=== PATIENT | female | born 1930 | race Caucasian/White ===

== ENCOUNTER 2019-05-01 11:07 | Inpatient (IN) ==
[2019-05-01] MEDS ORDERED: SODIUM CHLORIDE 0.9% 1,000 ML IV STA ×3 (11:39→12:29)
[2019-05-01 11:54] LABS: Basophils % 0.5 % (0.0-0.8); Hematocrit 52.4 VOL% (35.7-47.0); Hemoglobin 16.8 GM/DL (12.0-16.0); Immature Granulocytes % 0.4 %; Immature Granulocytes Absolute 0.03 #; Lymphocytes % 13.4 % (21.3-54.2); Mean Corpuscular HGB Conc 32.1 GM/DL (32-36); Mean Platelet Volume 9.8 FL (9.6-12.0); Monocytes % 18.9 % (1.7-12.7); Neutrophils % 66.8 % (38.7-73.9); Platelet Count 219 T/CUMM (130-400); Red Blood Count 5.89 MC/CUMM (3.8-5.5); Red Cell Distribution Width 17.1 % (9.3-17.3); White Blood Count 7.5 T/CUMM (4-12)
[2019-05-01 12:11] LABS: Apearance,Urine CLEAR (Clear); Bilirubin,Urine Moderate mg/dL (Negative); Blood, Urine Negative (Negative); Glucose,Urine (UA) Negative (Negative); Hyaline Casts,Urine 30 /LPF (0-3); Ketones,Urine 5 mg/dL (Negative); Mucus,Urine Occasional /LPF (Occasional); Nitrite,Urine Negative (Negative); Protein,Urine Negative; RBC,Urine <1 /HPF (0-4); Squamous Epithelial Cell,Urine Occasional /HPF (0-10); Urine Color Amber (Yellow); Urine Specific Gravity 1.025 (1.001-1.035); WBC,Urine <1 /HPF (0-6)
[2019-05-01 12:11] LABS: Alanine Aminotransferase 15 U/L (13-56); Albumin 2.9 G/DL (3.4-5.0); Alkaline Phosphatase 83 U/L (45-117); Aspartate Amino Transferase 15 U/L (0-37); Blood Urea Nitrogen 45 MG/DL (7-18); Calcium 7.9 MG/DL (8.5-10.1); Estimated Glom Filtration Rate 20 ML/MIN; Glucose 130 MG/DL (74-106); Osmolality,Calculated 299.8 MOS/KG (273-304)
[2019-05-01 12:15] LABS: Band Neutrophils 17 % (0-10); Hypochromasia 1+; Lymphocytes 13 % (20-55); Platelet Estimate Adequate; Segmented Neutrophils 53 % (50-85); Total Cells Counted 100
[2019-05-01] MEDS ORDERED: MEROPENEM 1,000 MG in SODIUM CHLORIDE 0.9% 100 ML IV STA (13:04)
[2019-05-01] MEDS ORDERED: ONDANSETRON 4 MG/2 ML VIAL IV PRN (14:40)
[2019-05-01] MEDS ORDERED: VANCOMYCIN INJ 1,000 MG in SODIUM CHLORIDE 0.9% 250 ML IV PRN (15:04)
[2019-05-01] MEDS: ceFAZolin 1,000 MG in SYRINGE 1 EACH IV SCH ×2 (15:25→20:46)
[2019-05-01] MEDS: metroNIDAZOLE INJ 500 MG in PREMIX 1 EACH IV SCH ×2 (15:25→23:16)
[2019-05-01] MEDS: SODIUM CHLORIDE 0.9% 1,000 ML IV SCH ×2 (15:25→22:26)
[2019-05-01] MEDS: FAMOTIDINE 20 MG/2 ML VIAL IV SCH (15:30)
[2019-05-01] MEDS ORDERED: VANCOMYCIN INJ 1,250 MG in SODIUM CHLORIDE 0.9% 250 ML IV ONE (16:00)
[2019-05-02 02:08] LABS: Basophils # 0.1 10*3/uL (0.0-0.2); Basophils % 1.3 % (0.0-0.8); Hematocrit 45.4 VOL% (35.7-47.0); Hemoglobin 14.9 GM/DL (12.0-16.0); Immature Granulocytes % 0.9 %; Immature Granulocytes Absolute 0.06 #; Lymphocytes # 0.9 10*3/uL (1.4-4.0); Lymphocytes % 12.9 % (21.3-54.2); Mean Corpuscular HGB Conc 32.8 GM/DL (32-36); Mean Corpuscular Volume 87.6 FL (87-102); Monocytes % 11.3 % (1.7-12.7); Neutrophils % 73.6 % (38.7-73.9); Platelet Count 151 T/CUMM (130-400); Red Blood Count 5.18 MC/CUMM (3.8-5.5); Red Cell Distribution Width 16.2 % (9.3-17.3); White Blood Count 6.8 T/CUMM (4-12)
[2019-05-02 02:09] LABS: Albumin 2.1 G/DL (3.4-5.0); Calcium 7.1 MG/DL (8.5-10.1); Thyroid Stimulating Hormone 0.404 uIU/ml (0.358-3.74)
[2019-05-02] MEDS: ceFAZolin 1,000 MG in SYRINGE 1 EACH IV SCH ×4 (02:09→21:48)
[2019-05-02] MEDS ORDERED: POTASSIUM CHLORIDE RIDER 10 MEQ in PREMIX 1 EACH IV ONE (03:09)
[2019-05-02 03:11] LABS: Anisocytosis 1+; Band Neutrophils 22 % (0-10); Lymphocytes 14 % (20-55); Segmented Neutrophils 43 % (50-85); Total Cells Counted 100
[2019-05-02 03:12] LABS: Burr Cells Few; Ovalocytes 1+; Platelet Estimate Adequate
[2019-05-02] MEDS: POTASSIUM CHLORIDE INJ 40 MEQ in DEXTROSE 5% 1,000 ML IV SCH ×3 (04:58→22:01)
[2019-05-02] MEDS: SODIUM CHLORIDE 0.9% 1,000 ML IV SCH (05:11)
[2019-05-02 05:39] LABS: Amorphous Crystals,Urine Few /HPF (Few); Apearance,Urine CLEAR (Clear); Bacteria,Urine Occasional /HPF (Few); Bilirubin,Urine Small mg/dL (Negative); Blood, Urine Small mg/dL (Negative); Glucose,Urine (UA) Negative (Negative); Hyaline Casts,Urine 1 /LPF (0-3); Ketones,Urine Negative (Negative); Mucus,Urine Occasional /LPF (Occasional); Nitrite,Urine Negative (Negative); Protein,Urine Negative; RBC,Urine <1 /HPF (0-4); Squamous Epithelial Cell,Urine Occasional /HPF (0-10); Urine Color Amber (Yellow); Urine Specific Gravity 1.024 (1.001-1.035); WBC,Urine 2 /HPF (0-6)
[2019-05-02] MEDS: metroNIDAZOLE INJ 500 MG in PREMIX 1 EACH IV SCH ×2 (08:45→15:20)
[2019-05-02] MEDS ORDERED: POTASSIUM CHLORIDE RIDER 10 MEQ in PREMIX 1 EACH IV PRN (09:17)
[2019-05-02] MEDS: MORPHINE 4 MG/1 ML VIAL IV PRN (12:10)
[2019-05-02] MEDS: FAMOTIDINE 20 MG/2 ML VIAL IV SCH (15:15)
[2019-05-02] MEDS: BISACODYL 5 MG TABLET PO SCH ×2 (16:30→22:00)
[2019-05-02] MEDS: METOCLOPRAMIDE 10 MG/2 ML VIAL IV SCH (17:50)
[2019-05-02] MEDS ORDERED: POLYETHYLENE GLYCOL POWDER 255 GM BOTTLE PO ONE (18:00)
[2019-05-02] MEDS ORDERED: VANCOMYCIN INJ 1,000 MG in SODIUM CHLORIDE 0.9% 250 ML IV SCH (18:00)
[2019-05-02] MEDS ORDERED: MAGNESIUM CITRATE 300 ML BOTTLE PO ONE (21:00)
[2019-05-03] MEDS: metroNIDAZOLE INJ 500 MG in PREMIX 1 EACH IV SCH ×4 (00:02→23:41)
[2019-05-03] MEDS: METOCLOPRAMIDE 10 MG/2 ML VIAL IV SCH ×4 (00:03→18:14)
[2019-05-03] MEDS: POTASSIUM CHLORIDE INJ 40 MEQ in DEXTROSE 5% 1,000 ML IV SCH ×4 (02:57→20:03)
[2019-05-03] MEDS: ceFAZolin 1,000 MG in SYRINGE 1 EACH IV SCH ×4 (03:10→20:02)
[2019-05-03 06:01] LABS: Basophils % 0.2 % (0.0-0.8); Eosinophils % 0.1 % (0.00-10.9); Hematocrit 45.1 VOL% (35.7-47.0); Hemoglobin 14.9 GM/DL (12.0-16.0); Immature Granulocytes % 1.4 %; Immature Granulocytes Absolute 0.14 #; Lymphocytes # 1.2 10*3/uL (1.4-4.0); Lymphocytes % 11.5 % (21.3-54.2); Mean Corpuscular Volume 85.3 FL (87-102); Mean Platelet Volume 10.2 FL (9.6-12.0); Monocytes % 7.4 % (1.7-12.7); Neutrophils % 79.4 % (38.7-73.9); Platelet Count 173 T/CUMM (130-400); Red Blood Count 5.29 MC/CUMM (3.8-5.5); Red Cell Distribution Width 15.9 % (9.3-17.3); White Blood Count 10.1 T/CUMM (4-12)
[2019-05-03 06:20] LABS: Albumin 2.2 G/DL (3.4-5.0); Bilirubin,Total 0.8 MG/DL (0.2-1.0); Calcium 7.8 MG/DL (8.5-10.1); Osmolality,Calculated 289.1 MOS/KG (273-304); Total Protein 5.3 G/DL (6.4-8.3)
[2019-05-03 06:29] LABS: Band Neutrophils 4 % (0-10); Hypochromasia 1+; Lymphocytes 6 % (20-55); Metamyelocytes 1 %; Microcytosis 1+; Platelet Estimate Adequate; Segmented Neutrophils 82 % (50-85); Total Cells Counted 100
[2019-05-03] MEDS ORDERED: POTASSIUM CHLORIDE 20 MEQ TABLET PO ONE (06:34)
[2019-05-03] MEDS: BISACODYL 5 MG TABLET PO SCH (07:01)
[2019-05-03] MEDS: POTASSIUM CHLORIDE RIDER 10 MEQ in PREMIX 1 EACH IV SCH ×4 (07:19→10:00)
[2019-05-03 08:46] LABS: Calcium 7.7 MG/DL (8.5-10.1); Osmolality,Calculated 287.3 MOS/KG (273-304)
[2019-05-03] MEDS: POTASSIUM CHLORIDE 20 MEQ TABLET PO PRN ×2 (08:55→11:42)
[2019-05-03] MEDS: VANCOMYCIN 50 MG/ML 60 ML/BOTTLE PO SCH ×2 (11:43→18:21)
[2019-05-03] MEDS: LACTATED RINGERS 1,000 ML IV SCH (12:25)
[2019-05-03] MEDS: POTASSIUM CHLORIDE 20 MEQ TABLET PO SCH ×3 (13:27→21:00)
[2019-05-03] MEDS: FAMOTIDINE 20 MG/2 ML VIAL IV SCH (14:18)
[2019-05-03] MEDS ORDERED: AMIODARONE 150 MG/3 ML VIAL ONE ×2 (15:13→15:16)
[2019-05-03] MEDS ORDERED: AMIODARONE INJ 150 MG in DEXTROSE 5% 100 ML IV ONE (15:30)
[2019-05-03] MEDS: traZODone 50 MG TABLET PO PRN (21:01)
[2019-05-04] MEDS: METOCLOPRAMIDE 10 MG/2 ML VIAL IV SCH ×4 (00:04→11:06)
[2019-05-04] MEDS: VANCOMYCIN 50 MG/ML 60 ML/BOTTLE PO SCH ×5 (00:36→23:00)
[2019-05-04 01:36] LABS: Basophils # 0.1 10*3/uL (0.0-0.2); Basophils % 0.6 % (0.0-0.8); Eosinophils # 0.2 10*3/uL (0.0-0.87); Eosinophils % 2.4 % (0.00-10.9); Hematocrit 43.7 VOL% (35.7-47.0); Hemoglobin 14.7 GM/DL (12.0-16.0); Immature Granulocytes % 1.5 %; Immature Granulocytes Absolute 0.14 #; Lymphocytes # 1.7 10*3/uL (1.4-4.0); Lymphocytes % 17.4 % (21.3-54.2); Mean Corpuscular HGB Conc 33.6 GM/DL (32-36); Mean Corpuscular Volume 84.2 FL (87-102); Mean Platelet Volume 10.5 FL (9.6-12.0); Monocytes % 9.3 % (1.7-12.7); Neutrophils % 68.8 % (38.7-73.9); Platelet Count 178 T/CUMM (130-400); Red Blood Count 5.19 MC/CUMM (3.8-5.5); Red Cell Distribution Width 15.9 % (9.3-17.3); White Blood Count 9.6 T/CUMM (4-12)
[2019-05-04 01:52] LABS: Calcium 7.6 MG/DL (8.5-10.1)
[2019-05-04] MEDS: ceFAZolin 1,000 MG in SYRINGE 1 EACH IV SCH ×2 (02:08→07:50)
[2019-05-04 02:29] LABS: Anisocytosis 1+; Platelet Estimate Adequate
[2019-05-04] MEDS: POTASSIUM CHLORIDE INJ 40 MEQ in DEXTROSE 5% 1,000 ML IV SCH ×4 (03:51→19:35)
[2019-05-04] MEDS: LACTATED RINGERS 1,000 ML IV SCH (07:00)
[2019-05-04] MEDS: metroNIDAZOLE INJ 500 MG in PREMIX 1 EACH IV SCH (07:50)
[2019-05-04] MEDS: POTASSIUM CHLORIDE 20 MEQ TABLET PO SCH ×2 (09:00→11:04)
[2019-05-04] MEDS: FAMOTIDINE 20 MG/2 ML VIAL IV SCH ×2 (11:04→21:25)
[2019-05-04] MEDS: MORPHINE 4 MG/1 ML VIAL IV PRN ×3 (11:04→21:25)
[2019-05-04] MEDS: cefTRIAXone 1,000 MG in SYRINGE 1 EACH IV SCH (11:23)
[2019-05-04] MEDS ORDERED: ETOMIDATE 20 MG/10 ML VIAL IV ONE (12:00)
[2019-05-04] MEDS ORDERED: PROPOFOL 200 MG/20 ML VIAL IV ONE (12:00)
[2019-05-04] MEDS ORDERED: LIDOCAINE 2% 5 ML VIAL ONE (12:00)
[2019-05-04] MEDS ORDERED: AMIODARONE 150 MG/3 ML VIAL ONE (14:00)
[2019-05-04] MEDS ORDERED: AMIODARONE INJ 150 MG in DEXTROSE 5% 100 ML IV ONE (14:00)
[2019-05-04] MEDS: POTASSIUM CHLORIDE 20 MEQ TABLET PO PRN (16:22)
[2019-05-04] MEDS: metroNIDAZOLE INJ 250 MG in IV BAG 1 EACH IV SCH ×2 (16:22→22:45)
[2019-05-04] MEDS: DIVALPROEX SPRINKLE 125 MG CAPSULE PO SCH (16:23)
[2019-05-04] MEDS: TOPIRAMATE 25 MG TABLET PO SCH ×2 (21:25)
[2019-05-04] MEDS: MONTELUKAST 10 MG TABLET PO SCH (21:25)
[2019-05-04] MEDS: traZODone 50 MG TABLET PO PRN (21:25)
[2019-05-05] MEDS: VANCOMYCIN 50 MG/ML 60 ML/BOTTLE PO SCH ×3 (05:40→17:45)
[2019-05-05 05:42] LABS: Basophils # 0.1 10*3/uL (0.0-0.2); Basophils % 0.8 % (0.0-0.8); Eosinophils # 0.4 10*3/uL (0.0-0.87); Eosinophils % 4.8 % (0.00-10.9); Hematocrit 41.7 VOL% (35.7-47.0); Hemoglobin 13.6 GM/DL (12.0-16.0); Immature Granulocytes % 2.2 %; Lymphocytes # 2.2 10*3/uL (1.4-4.0); Lymphocytes % 24.5 % (21.3-54.2); Mean Corpuscular HGB Conc 32.6 GM/DL (32-36); Mean Platelet Volume 10.1 FL (9.6-12.0); Monocytes % 10.7 % (1.7-12.7); Platelet Count 153 T/CUMM (130-400); Red Blood Count 4.85 MC/CUMM (3.8-5.5); Red Cell Distribution Width 16.3 % (9.3-17.3)
[2019-05-05 05:54] LABS: Calcium 7.4 MG/DL (8.5-10.1); Osmolality,Calculated 276.4 MOS/KG (273-304)
[2019-05-05] MEDS: metroNIDAZOLE INJ 250 MG in IV BAG 1 EACH IV SCH ×2 (06:10→15:11)
[2019-05-05] MEDS: LACTATED RINGERS 1,000 ML IV SCH ×2 (08:06→10:25)
[2019-05-05] MEDS: FAMOTIDINE 20 MG/2 ML VIAL IV SCH (10:25)
[2019-05-05] MEDS: MONTELUKAST 10 MG TABLET PO SCH ×2 (10:25→22:44)
[2019-05-05] MEDS: TOPIRAMATE 25 MG TABLET PO SCH ×3 (10:26→22:43)
[2019-05-05] MEDS: cefTRIAXone 1,000 MG in SYRINGE 1 EACH IV SCH (10:26)
[2019-05-05] MEDS: PANTOPRAZOLE 40 MG TABLET PO SCH ×2 (15:11→22:46)
[2019-05-05] MEDS: DIVALPROEX SPRINKLE 125 MG CAPSULE PO SCH (17:45)
[2019-05-05] MEDS: CEFUROXIME 500 MG TABLET PO SCH (22:44)
[2019-05-05] MEDS: SIMVASTATIN 20 MG TABLET PO SCH (22:44)
[2019-05-06] MEDS: VANCOMYCIN 50 MG/ML 60 ML/BOTTLE PO SCH ×4 (00:47→17:26)
[2019-05-06] MEDS: LACTATED RINGERS 1,000 ML IV SCH ×2 (00:48→13:32)
[2019-05-06 06:08] LABS: Basophils # 0.1 10*3/uL (0.0-0.2); Basophils % 0.8 % (0.0-0.8); Eosinophils # 0.3 10*3/uL (0.0-0.87); Eosinophils % 4.9 % (0.00-10.9); Hematocrit 40.1 VOL% (35.7-47.0); Hemoglobin 13.4 GM/DL (12.0-16.0); Immature Granulocytes % 3.8 %; Immature Granulocytes Absolute 0.25 #; Lymphocytes # 1.9 10*3/uL (1.4-4.0); Lymphocytes % 29.8 % (21.3-54.2); Mean Corpuscular HGB Conc 33.4 GM/DL (32-36); Mean Corpuscular Volume 84.6 FL (87-102); Monocytes % 9.5 % (1.7-12.7); Neutrophils % 51.2 % (38.7-73.9); Platelet Count 150 T/CUMM (130-400); Red Blood Count 4.74 MC/CUMM (3.8-5.5); White Blood Count 6.5 T/CUMM (4-12)
[2019-05-06 06:21] LABS: Osmolality,Calculated 288.4 MOS/KG (273-304)
[2019-05-06 06:35] LABS: Band Neutrophils 2 % (0-10); Eosinophils 7 % (0-10); Hypochromasia 1+; Lymphocytes 22 % (20-55); Segmented Neutrophils 57 % (50-85); Total Cells Counted 100
[2019-05-06 06:36] LABS: Microcytosis 1+; Platelet Estimate Adequate
[2019-05-06] MEDS: CEFUROXIME 500 MG TABLET PO SCH ×2 (09:45→22:01)
[2019-05-06] MEDS: MONTELUKAST 10 MG TABLET PO SCH ×2 (09:45→22:01)
[2019-05-06] MEDS: PANTOPRAZOLE 40 MG TABLET PO SCH ×2 (09:45→22:02)
[2019-05-06] MEDS: TOPIRAMATE 25 MG TABLET PO SCH ×3 (09:45→22:02)
[2019-05-06] MEDS: MORPHINE 4 MG/1 ML VIAL IV PRN (13:21)
[2019-05-06] MEDS: DIVALPROEX SPRINKLE 125 MG CAPSULE PO SCH (17:26)
[2019-05-06] MEDS: SIMVASTATIN 20 MG TABLET PO SCH (22:02)
[2019-05-06] MEDS: traZODone 50 MG TABLET PO PRN (22:03)
[2019-05-07] MEDS: VANCOMYCIN 50 MG/ML 60 ML/BOTTLE PO SCH ×4 (00:15→17:37)
[2019-05-07] MEDS: LACTATED RINGERS 1,000 ML IV SCH ×2 (02:39→17:50)
[2019-05-07 05:34] LABS: Basophils # 0.1 10*3/uL (0.0-0.2); Basophils % 0.9 % (0.0-0.8); Eosinophils # 0.3 10*3/uL (0.0-0.87); Eosinophils % 4.2 % (0.00-10.9); Hematocrit 36.2 VOL% (35.7-47.0); Hemoglobin 11.8 GM/DL (12.0-16.0); Immature Granulocytes % 4.5 %; Immature Granulocytes Absolute 0.29 #; Lymphocytes # 2.8 10*3/uL (1.4-4.0); Lymphocytes % 42.6 % (21.3-54.2); Mean Corpuscular HGB Conc 32.6 GM/DL (32-36); Mean Corpuscular Volume 84.6 FL (87-102); Mean Platelet Volume 9.4 FL (9.6-12.0); Monocytes % 9.3 % (1.7-12.7); Neutrophils % 38.5 % (38.7-73.9); Platelet Count 190 T/CUMM (130-400); Red Blood Count 4.28 MC/CUMM (3.8-5.5); White Blood Count 6.5 T/CUMM (4-12)
[2019-05-07 05:54] LABS: Calcium 7.6 MG/DL (8.5-10.1); Osmolality,Calculated 282.8 MOS/KG (273-304)
[2019-05-07 06:03] LABS: Band Neutrophils 2 % (0-10); Eosinophils 2 % (0-10); Lymphocytes 42 % (20-55); Segmented Neutrophils 44 % (50-85); Total Cells Counted 100
[2019-05-07 06:04] LABS: Atypical Lymphocytes Few; Hypochromasia 1+; Microcytosis 1+; Platelet Estimate Adequate; Target Cells Slight
[2019-05-07] MEDS: POTASSIUM CHLORIDE RIDER 10 MEQ in PREMIX 1 EACH IV SCH ×4 (10:11→14:53)
[2019-05-07] MEDS: MONTELUKAST 10 MG TABLET PO SCH ×3 (10:12→22:08)
[2019-05-07] MEDS: TOPIRAMATE 25 MG TABLET PO SCH ×4 (10:12→22:08)
[2019-05-07] MEDS: POTASSIUM CHLORIDE 20 MEQ TABLET PO PRN (10:12)
[2019-05-07] MEDS: PANTOPRAZOLE 40 MG TABLET PO SCH ×3 (10:12→22:08)
[2019-05-07] MEDS: CEFUROXIME 500 MG TABLET PO SCH ×3 (10:12→22:09)
[2019-05-07] MEDS: DIVALPROEX SPRINKLE 125 MG CAPSULE PO SCH (17:31)
[2019-05-07] MEDS: MORPHINE 4 MG/1 ML VIAL IV PRN (17:36)
[2019-05-07] MEDS: traZODone 50 MG TABLET PO PRN (22:09)
[2019-05-07] MEDS: SIMVASTATIN 20 MG TABLET PO SCH (22:09)
[2019-05-08] MEDS: VANCOMYCIN 50 MG/ML 60 ML/BOTTLE PO SCH ×3 (00:19→14:07)
[2019-05-08] MEDS: LACTATED RINGERS 1,000 ML IV SCH (06:38)
[2019-05-08 08:15] LABS: Basophils % 0.5 % (0.0-0.8); Eosinophils # 0.2 10*3/uL (0.0-0.87); Eosinophils % 2.9 % (0.00-10.9); Hematocrit 35.6 VOL% (35.7-47.0); Hemoglobin 11.9 GM/DL (12.0-16.0); Immature Granulocytes % 3.2 %; Immature Granulocytes Absolute 0.23 #; Lymphocytes # 2.3 10*3/uL (1.4-4.0); Lymphocytes % 30.9 % (21.3-54.2); Mean Corpuscular HGB Conc 33.4 GM/DL (32-36); Mean Corpuscular Volume 85.2 FL (87-102); Mean Platelet Volume 9.3 FL (9.6-12.0); Monocytes % 8.6 % (1.7-12.7); Neutrophils % 53.9 % (38.7-73.9); Platelet Count 237 T/CUMM (130-400); Red Blood Count 4.18 MC/CUMM (3.8-5.5); Red Cell Distribution Width 16.1 % (9.3-17.3); White Blood Count 7.3 T/CUMM (4-12)
[2019-05-08 08:32] LABS: Calcium 8.2 MG/DL (8.5-10.1); Osmolality,Calculated 289.3 MOS/KG (273-304)
[2019-05-08 08:52] LABS: Eosinophils 1 % (0-10); Hypochromasia Slight; Lymphocytes 21 % (20-55); Microcytosis 1+; Platelet Estimate Normal; Polychromasia Slight; Segmented Neutrophils 75 % (50-85); Total Cells Counted 100
[2019-05-08 08:53] LABS: Giant Platelets Few
[2019-05-08] MEDS: MONTELUKAST 10 MG TABLET PO SCH (09:51)
[2019-05-08] MEDS: TOPIRAMATE 25 MG TABLET PO SCH (09:51)
[2019-05-08] MEDS: PANTOPRAZOLE 40 MG TABLET PO SCH (09:51)
[2019-05-08] MEDS: CEFUROXIME 500 MG TABLET PO SCH (09:51)
[2019-05-08 11:42] VITALS: BP 144/59
[2019-05-08] MEDS: MORPHINE 4 MG/1 ML VIAL IV PRN (11:52)
[2019-05-08] MEDS: POTASSIUM CHLORIDE 20 MEQ TABLET PO PRN ×2 (11:52→14:07)
== END 2019-05-08 14:21 | disposition home or self-care (01) | DRG 392 ==
LOC: EDBD → EDUNIT# → N.ED 11:07 → N.EDINP 13:22 → SUATTDRO 13:22 → N.ICU 13:43 → N.2E 05-05 18:44
PROVIDERS: ADMIT Internal Medicine; ATTEND Hospitalist